=== PATIENT | male | born 1950 | race Caucasian/White ===

== ENCOUNTER 2018-08-27 14:46 | Inpatient (IN) ==
--- NOTE | 2018-08-27 16:26 | Diag Imaging Result Doc PS360 ---
CHEST-2 VIEWS - 08/27/2018 INDICATION: fever COMPARISON: 06/11/2018 FINDINGS: There is ill-defined infiltrate in the left lower lobe. Heart size is normal. Stable fibrotic opacities in the lung bases. No pneumothorax or pleural effusion. IMPRESSION: Left lower lobe bronchopneumonia. Electronically signed by Joey Arrington 08/27/2018 4:24 PM
[2018-08-27 16:55] LABS: BASO# 0.02 X1000 (0.0-0.2); BASO% 0.1 % (0.0-0.8); EOS# 0.02 X1000 (0.0-0.7); EOS% 0.1 % (0.0-10.0); HEMATOCRIT 47.7 % (42.0-52.0); HEMOGLOBIN 15.8 g/dL (14.0-18.0); IMM GRAN# 0.08 X1000 (0.0-0.04); IMM GRAN% 0.4 % (0.0-0.5); LYMPH# 0.45 X1000 (1.2-3.4); LYMPH% 2.3 % (20.5-51.1); MCH 28.8 PG (27-31); MCHC 33.1 g/dL (33-37); MCV 86.9 FL (81-99); MONO# 1.33 X1000 (0.11-0.59); MONO% 6.9 % (1.7-9.3); MPV 10.8 FL (7.4-10.4); NEUT# 17.45 X1000 (1.4-6.5); NEUT% 90.2 % (42.2-75.2); PLT 252 X1000 (130-400); RBC 5.49 XMIL (4.7-6.1); RDW 14.6 % (11.5-14.5); WBC 19.35 X1000 (4.8-10.8)
[2018-08-27 17:02] LABS: ALB/GLOB RATIO 1.5; ALBUMIN 4.2 g/dL (3.5-5.0); CALCIUM 8.9 mg/dL (8.8-10.2); CREATININE 2.3 mg/dL (0.7-1.2); POTASSIUM 3.8 mmol/L (3.5-5.1); TOTAL BILIRUBIN 5.19 mg/dL (0.20-1.00)
[2018-08-27] MEDS ORDERED: NS 1,000 ML IV ONE ×2 (17:40→18:30)
[2018-08-27] MEDS ORDERED: ROCEPHIN 1 GM in NS 50 ML IV ONE (17:41)
--- NOTE | 2018-08-27 17:42 | PROVIDER DOCUMENTATION ---
HPI-Fever - General Chief Complaint: Fever Stated Complaint: SYNCOPE Time Seen by Provider: 08/27/18 17:36 Source: patient, family Allergies/Adverse Reactions: Patient Allergies Allergy/AdvReac Type Severity Reaction Status Date / Time No Known Allergies Allergy Verified 08/27/18 17:52 Home Medications: Home Medication List Medication Instructions Recorded Confirmed Last Taken Type Atorvastatin Calcium [Lipitor] 40 mg PO QAM 10/03/15 08/27/18 03/12/18 04:00 History 40 Buspirone HCl [Buspar] 5 mg PO TID 10/03/15 08/27/18 03/12/18 04:00 History 5 Mirtazapine [Remeron] 45 mg PO QPM 10/03/15 08/27/18 03/11/18 19:00 History 45 Omeprazole [Prilosec] 20 mg PO DAILY 10/03/15 08/27/18 03/12/18 04:00 History 20 Cetirizine HCl 10 mg PO DAILY 02/12/18 08/27/18 03/11/18 19:00 History 10 Polyvinyl Alcohol Eye Drops 1 drop BOTH EYES 4XDAY 02/12/18 08/27/18 03/12/18 04 :00 History [Tearisol Oph Solution] 1 Quetiapine Fumarate [Seroquel] 300 mg PO QHS 02/12/18 08/27/18 03/11/18 19:00 History 300 Tamsulosin [Flomax] 0.4 mg PO DAILY 02/12/18 08/27/18 03/12/18 04:00 History 0.4 Amlodipine Besylate [Norvasc] 10 mg PO QAM #60 tab 02/22/18 08/27/18 03/12/18 04 :00 Rx 10 Hydrocodone/APAP 10 mg/325 mg 1 ea PO Q4H PRN PRN #30 tab 02/22/18 08/27/18 Unknown Rx [[place]-10] Thiamine [Vitamin B-1] 100 mg PO DAILY tablet 02/22/18 08/27/18 03/12/18 04:00 Rx 100 - History of Present Illness-Fever Nature of Presenting Problem: reports that weakness, nausea, chills, cough. few days ago he has sinus drainage. no other symptoms. was seen at urgent care and told pt has renal failure. Review of Systems - Adult - REVIEW OF SYSTEMS - ADULT Constitutional: reports: no symptoms reported Eyes: reports: no symptoms reported Ears, Nose, Mouth & Throat: reports: no symptoms reported Cardiovascular: reports: no symptoms reported Respiratory: reports: no symptoms reported Gastrointestinal: reports: no symptoms reported Genitourinary: reports: no symptoms reported Musculoskeletal: reports: no symptoms reported Integumentary: reports: no symptoms reported Neurological: reports: no symptoms reported Psychiatric: reports: no symptoms reported Endocrine: reports: no symptoms reported Hematologic/Lymphatic: reports: no symptoms reported Allergic/Immunologic: reports: no symptoms reported All Other Systems: Reviewed and Negative Past History - Adult - PAST MEDICAL HISTORY-ADULT Review of Records: reports: Old Records Reviewed, Nursing Assessment Review, Medications Reviewed, Social history reviewed & non-contributory. Major Childhood Illnesses: reports: denies history Cardiovascular: reports: HTN, hyperlipidemia Respiratory: reports: COPD Gastrointestinal: reports: GERD Obstetrical/Gynecological: reports: denies history Genitourinary: reports: denies history Musculoskeletal: reports: denies history Neurological: reports: CVA, dementia, Seizures/Epilepsy Psychiatric: reports: depression Endocrine/Immune: reports: denies history Other Conditions: reports: denies history - PRIOR SURGERIES/PROCEDURES Surgical/Procedure History: reports: reviewed, not pertinent, cholecystectomy - IMMUNIZATION STATUS Childhood Immunizations: See Nurse Assessment Flu Vaccine: See Nurse Assessment - FAMILY HISTORY Family History: reviewed, not pertinent - SOCIAL HISTORY Smoking: greater than 1 pack/day Provider spent 3-5 mins advising pt. on dangers of tobacco.: Discussed manners to quit use, and f/u contacts for add'l counseling. Substance Use: none/never Alcohol Use Frequency: never Living Situation: family Physical Exam-General - PHYSICAL EXAM-ADULT Initial Vital Signs Reviewed: Yes - CONSTITUTIONAL General Appearance: appears well, alert, no apparent distress - EYES Eyes: PERRL/EOMI, pink conjunctivae - HEAD, EARS, NOSE, MOUTH & THROAT HENMT: normocephalic/atraumatic, moist mucous membranes, normal ENT inspection, TMs normal, other (dry mucous membrane) - NECK Neck: non-tender, full range of motion - RESPIRATORY Respiratory: chest non-tender, decreased breath sounds, wheezing - CARDIOVASCULAR Cardiovascular: normal peripheral pulses, regular rate, rhythm, no edema - GASTROINTESTINAL (ABDOMEN) Abdominal Exam: normal bowel sounds, non tender, soft - MUSCULOSKELETAL Back Exam: normal inspection, no CVA tenderness Extremity: normal range of motion, non-tender, normal gait Peripheral Pulses: radial (R): 2+, radial (L): 2+ - SKIN Integumentary: normal color, normal turgor, warm/dry - NEUROLOGIC Neurologic: grossly normal, no motor/sensory deficits - PSYCHIATRIC Psych/Mental Status: normal mood/affect, normal thought content, normal thought process, oriented x 3 Progress - PLAN OF CARE/RESULTS Progress/Plan/Lab Results: Vital Signs - 8 hr 08/27/18 15:16 08/27/18 17:34 08/27/18 17:35 Temperature 101.3 F H Pulse Rate 136 H 104 H 113 H Respiratory Rate 18 18 35 H Blood Pressure 131/80 140/78 140/78 O2 Sat by Pulse Oximetry 92 L 95 96 08/27/18 17:40 08/27/18 17:50 08/27/18 18:00 Temperature 99.9 F H Pulse Rate 112 H 108 H 111 H Respiratory Rate 23 27 H Blood Pressure 140/78 O2 Sat by Pulse Oximetry 95 93 L 92 L 08/27/18 18:10 08/27/18 18:20 08/27/18 18:28 Temperature 100.2 F H Pulse Rate 110 H 103 H Respiratory Rate Blood Pressure O2 Sat by Pulse Oximetry 94 L 93 L 08/27/18 15:20 Influenza Screen - Final Nasopharyngeal Laboratory Results - last 24 hr 08/27/18 08/27/18 08/27/18 15:58 15:58 15:58 WBC 19.35 H RBC 5.49 Hgb 15.8 Hct 47.7 MCV 86.9 MCH 28.8 MCHC 33.1 RDW Std Deviation 14.6 H Plt Count 252 MPV 10.8 H Immature Gran % (Auto) 0.4 Neut % (Auto) 90.2 H Lymph % (Auto) 2.3 L [place] % (Auto) 6.9 Eos % (Auto) 0.1 Baso % (Auto) 0.1 Immature Gran # (Auto) 0.08 H Neut # (Auto) 17.45 H Lymph # (Auto) 0.45 L [place] # (Auto) 1.33 H Eos # (Auto) 0.02 Baso # (Auto) 0.02 PT INR PTT (Actin FS) Sodium 141 Potassium 3.8 Chloride 99 Carbon Dioxide 21 L Anion Gap 21 BUN 30 H Creatinine 2.3 H Estimated GFR/1.73 m2 29 BUN/Creatinine Ratio 13 Glucose 110 H Calculated Osmolality 288 Calcium 8.9 Total Bilirubin 5.19 H AST 257 H ALT 228 H Alkaline Phosphatase 305 H Creatine Kinase Troponin T Total Protein 7.0 Albumin 4.2 Globulin 2.8 Albumin/Globulin Ratio 1.5 Plasma Lactate 2.4 H Urine Source Urine Color Urine Turbidity Urine pH Ur Specific [place] Urine Protein Ur Glucose (Stick) Ur Ketones (Stick) Urine Blood Urine Nitrite Urine Bilirubin Urobilinogen Dipstick Urine Leukocytes Urine WBC (Auto) Urine RBC (Auto) U Epithel Cells (Auto) Urine Bacteria (Auto) 08/27/18 08/27/18 08/27/18 15:58 15:58 15:58 WBC RBC Hgb Hct MCV MCH MCHC RDW Std Deviation Plt Count MPV Immature Gran % (Auto) Neut % (Auto) Lymph % (Auto) [place] % (Auto) Eos % (Auto) Baso % (Auto) Immature Gran # (Auto) Neut # (Auto) Lymph # (Auto) [place] # (Auto) Eos # (Auto) Baso # (Auto) PT 13.9 INR 0.99 PTT (Actin FS) 32.5 Sodium Potassium Chloride Carbon Dioxide Anion Gap BUN Creatinine Estimated GFR/1.73 m2 BUN/Creatinine Ratio Glucose Calculated Osmolality Calcium Total Bilirubin AST ALT Alkaline Phosphatase Creatine Kinase 71 Troponin T < 0.010 Total Protein Albumin Globulin Albumin/Globulin Ratio Plasma Lactate Urine Source Urine Color Urine Turbidity Urine pH Ur Specific [place] Urine Protein Ur Glucose (Stick) Ur Ketones (Stick) Urine Blood Urine Nitrite Urine Bilirubin Urobilinogen Dipstick Urine Leukocytes Urine WBC (Auto) Urine RBC (Auto) U Epithel Cells (Auto) Urine Bacteria (Auto) 08/27/18 08/27/18 17:50 18:04 WBC RBC Hgb Hct MCV MCH MCHC RDW Std Deviation Plt Count MPV Immature Gran % (Auto) Neut % (Auto) Lymph % (Auto) [place] % (Auto) Eos % (Auto) Baso % (Auto) Immature Gran # (Auto) Neut # (Auto) Lymph # (Auto) [place] # (Auto) Eos # (Auto) Baso # (Auto) PT INR PTT (Actin FS) Sodium Potassium Chloride Carbon Dioxide Anion Gap BUN Creatinine Estimated GFR/1.73 m2 BUN/Creatinine Ratio Glucose Calculated Osmolality Calcium Total Bilirubin AST ALT Alkaline Phosphatase Creatine Kinase Troponin T Total Protein Albumin Globulin Albumin/Globulin Ratio Plasma Lactate 2.9 H Urine Source CLEAN CATCH Urine Color YELLOW Urine Turbidity CLEAR Urine pH 6.5 Ur Specific [place] 1.013 Urine Protein 300 A Ur Glucose (Stick) NEGATIVE Ur Ketones (Stick) NEGATIVE Urine Blood NEGATIVE Urine Nitrite NEGATIVE Urine Bilirubin MODERATE A Urobilinogen Dipstick 6 A Urine Leukocytes NEGATIVE Urine WBC (Auto) <10 Urine RBC (Auto) <10 U Epithel Cells (Auto) <10 Urine Bacteria (Auto) NEGATIVE Orders Category Date Time Status Cardiac Monitoring DIRECTED Care 08/27/18 17:22 Active IV Insertion ORDERED Care 08/27/18 17:22 Completed Notify MD of + Sepsis Screen NOW Care 08/27/18 17:22 Active Notify Physician As Ordered Care 08/27/18 17:22 Active CHEST-2 VIEWS [RAD] Stat Exams 08/27/18 15:23 Completed BLOOD CULTURE [BLDCUL] Stat Lab 08/27/18 16:00 Results CBC WITH ELECTRONIC DIFF [HEME] Stat Lab 08/27/18 15:58 Completed CK PROFILE [SP CHEM] Stat Lab 08/27/18 15:58 Completed COMPREHENSIVE METABOLIC PANEL [CHEM] Stat Lab 08/27/18 15:58 Completed INFLUENZA SCREEN A/B Stat Lab 08/27/18 15:20 Completed LACTATE, PLASMA [CHEM] Lab 08/27/18 17:50 Completed LACTATE, PLASMA [CHEM] Lab 08/27/18 20:30 Uncollected LACTATE, PLASMA [CHEM] Lab 08/27/18 23:30 Uncollected LACTATE, PLASMA [CHEM] Stat Lab 08/27/18 15:58 Completed PROTIME WITH INR [COAG] Stat Lab 08/27/18 15:58 Completed PTT [COAG] Stat Lab 08/27/18 15:58 Completed TROPONIN T Stat Lab 08/27/18 15:58 Completed URINALYSIS W/POSS RFLX CULT [URINALYSIS] Stat Lab 08/27/18 18:04 Completed 0.9% Sodium Chloride Inj [Ns] 1,000 ml Med 08/27/18 18:16 Discontinued .ROUTE As Directed 0.9% Sodium Chloride Inj [Ns] 1,000 ml Med 08/27/18 17:40 Active IV 999 mls/hr 0.9% Sodium Chloride Inj [Ns] 1,000 ml Med 08/27/18 18:30 Active IV 999 mls/hr 0.9% Sodium Chloride Inj [Ns] 500 ml Med 08/27/18 18:30 Discontinued IV 999 mls/hr Albuterol [Albuterol Neb] Med 08/27/18 18:03 Discontinued 2.5 mg INH NOW ONE CefTRIAXONE [Rocephin] 1 gm Med 08/27/18 17:41 Discontinued 0.9% Sodium Chloride Inj [Ns] 50 ml IV NOW Aerosol Treatments Routine Oth 08/27/18 18:03 Active Aerosol Treatments Stat Ot 08/27/18 18:03 Active Oxygen Device Stat Ot 08/27/18 17:22 Active Pneumonia (suspected) Stat Ot 08/27/18 15:22 Ordered [facility] [address] [place] [address] [address], [place] [address] Department of Imaging Patient: DAYNA VILLAFUERTE ADM Date: 08/27/18 MR#: [id number] : 1950 ADM Status: PRE ER Age/Sex: 68/M Room/Bed: Loc: ED Ordering Physician: Jeremiah Murray MD Family Physician: None,PCP Reason for Procedure: fever ___ Signed CHEST-2 VIEWS - 08/27/2018 INDICATION: fever COMPARISON: 06/11/2018 FINDINGS: There is ill-defined infiltrate in the left lower lobe. Heart size is normal. Stable fibrotic opacities in the lung bases. No pneumothorax or pleural effusion. IMPRESSION: Left lower lobe bronchopneumonia. Electronically signed by Joey Arrington 08/27/2018 4:24 PM 08/27/18 1102 Interpreting Physician: Joey Arrington MD Dictated Date/Time: 08/27/18 1627 cc: Jeremiah Murray MD; None,PCP Result Diagrams: 08/27/18 15:58 08/27/18 15:58 Departure - Departure Date of Disposition Decision: 08/27/18 Time of Disposition Decision: 18:08 DIAGNOSIS: Bronchopneumonia, Elevated transaminase level, Acute kidney failure, Tobacco use disorder Disposition: ADMITTED INPATIENT 09 Certified Medical Emergency: Emergent Condition: Stable Referrals and Follow-Ups: None,PCP [Primary Care Provider] - - Critical Care Note This patient required my direct & personal management of CC.: No Attestation - Physician/ CHAS Attestation Patient care was provided by Advanced Practice Provider:: No The physician spent face to face time with patient:: Yes Advanced Practice Provider documentation review:: Supervising physician onsite and consulted in the evaluation and care of this patient. The physician did have a face to face encounter with the patient.
[2018-08-27 18:02] LABS: INR 0.99; PROTIME 13.9 Seconds (11.0-16.0); PTT 32.5 Seconds (22.3-41.8)
[2018-08-27] MEDS ORDERED: ALBUTEROL NEB INH ONE (18:03)
[2018-08-27 18:06] LABS: URINE SOURCE CLEAN CATCH
[2018-08-27 18:09] LABS: BILIRUBIN URINE MODERATE (NEGATIVE); BLOOD URINE NEGATIVE (NEGATIVE); COLOR YELLOW; GLUCOSE URINE NEGATIVE (NEGATIVE); KETONE URINE NEGATIVE (NEGATIVE); LEUKOCYTES URINE NEGATIVE (NEGATIVE); NITRITE URINE NEGATIVE (NEGATIVE); PH URINE 6.5; PROTEIN URINE 300 mg/dL (NEGATIVE); SP GRAVITY URINE 1.013; TURBIDITY URINE CLEAR (CLEAR); UROBILINOGEN URINE 6 mg/dL (NORMAL)
[2018-08-27 18:10] LABS: UR EPITHELIAL CELLS <10 /HPF (<10); URINE BACTERIA NEGATIVE /HPF; URINE RBC <10 /HPF (<10); URINE WBC <10 /HPF (<10)
[2018-08-27] MEDS ORDERED: NS 2,000 ML ONE (18:16)
[2018-08-27] MEDS ORDERED: NS 500 ML IV ONE (18:30)
[2018-08-27] MEDS ORDERED: NORCO-10 PO PRN (19:41)
--- NOTE | 2018-08-27 20:57 | Diag Imaging Result Doc PS360 ---
CT THORAX/ABD/PELVIS W/O CON - 08/27/2018 INDICATION: elevated LFTs, renal failure, COMPARISON: 02/13/2018, 02/12/2018 FINDINGS: CHEST: There is moderate vascular disease of the aortic arch and coronary arteries. There is stable fatty metaplasia at the apex of the left ventricle compatible with an old infarction. No mass or adenopathy. Stable mild COPD changes. No infiltrates. There are moderate degenerative changes of the spine. No acute or suspicious bony lesion. Abdomen pelvis: There are cholecystectomy clips. There are surgical changes to the posterior lateral left kidney with removal of one of the soft tissue density masses or cysts. The other cyst at the medial lower pole remains stable. This measures 6.2 x 5 cm. No stones or obstruction. No bowel obstruction or inflammation. Urinary bladder, prostate, and rectum are normal. Bones are intact. IMPRESSION: Little change from prior. No acute process. This exam was performed using automated exposure control, adjustment of mA or kV according to patient size, and/or use of iterative reconstruction technique Electronically signed by Joey Arrington 08/27/2018 8:54 PM
[2018-08-27] MEDS ORDERED: SEROQUEL PO SCH (21:00)
[2018-08-27] MEDS ORDERED: DOXYCYCLINE 100 MG in NS 250 ML IV ONE (21:00)
[2018-08-27] MEDS: DUONEB (A & A) INH SCH (21:45)
[2018-08-27] MEDS: HEPARIN SUBQ SCH (22:20)
[2018-08-27] MEDS: TEARISOL OPH SOLUTION BOTH EYES SCH (22:20)
[2018-08-27] MEDS: REMERON PO SCH (22:20)
[2018-08-27] MEDS: NS 1,000 ML IV SCH (23:00)
[2018-08-27] MEDS ORDERED: OXY IR PO PRN (23:37)
[2018-08-28 02:09] LABS: UR CREAT RANDOM 128.5 mg/dL (14-26)
[2018-08-28 02:21] LABS: UR PROT RANDOM 557.4 mg/dL
--- NOTE | 2018-08-28 03:28 | HISTORY AND PHYSICAL ---
CHIEF COMPLAINT: Shortness of breath. HISTORY OF PRESENT ILLNESS: This is a 68-year-old male with a history of renal cancer, recently resected. Also, a fairly longstanding smoking history. He came in to the ER for issues related to shortness of breath and fevers. He was here in February for a similar issue. He reports no headache. He does report cough and shortness of breath. His temperatures here though have been, he came in with a temperature today of 101.3, that is what he was when he came in this afternoon. Initially, felt to have a bronchopneumonia, but his CT scan did not confirm pneumonia, but his chest x-ray showed a left lower lobe infiltrate. He has some leukocytosis of 19,000, and it looks like some degree of progressive renal failure as well, which he has had issues with that before. Urine was otherwise clear. He denies any abdominal complaints. No vomiting. He has had nausea, as well. He was totally in renal failure, and he was sent from Urgent Care. Now that being said, he is a bit jaundiced as well, but it is not clear he has pneumonia, but he does have elevated liver enzymes and fever, most consistent with an acute hepatitis-type syndrome. He was admitted for further management. The patient had a similar presentation in June, and that is when he had cancer found in his kidney, so unclear what his diagnosis is now. PAST MEDICAL HISTORY: 1. Likely, COPD. 2. Dyslipidemia. 3. Anxiety, depression. 4. BPH. 5. Renal cell carcinoma. 6. Hypertension. PAST SURGICAL HISTORY: Nephrectomy, otherwise negative. SOCIAL HISTORY: He does smoke about a pack a day. He has done that for probably 40 years. He denies any recent alcohol use. I think he said he quit 15 years ago. He denies any other major issues. ALLERGIES: No known drug allergies. FAMILY HISTORY: Reviewed and noncontributory. He is a musician, works with keyboards. REVIEW OF SYSTEMS: No other major issues there. No weight loss or appetite change. No chest pain. Shortness of breath as described. GI: No issues. He has not noted jaundice. Otherwise, negative times a 10-point review of systems. PHYSICAL EXAMINATION: VITAL SIGNS: Current blood pressure is 109/61, heart rate 92, respiratory rate of 15, temperature 97.5 degrees, but he was 101.3 when he came in. Saturations are 93% on 3 L. GENERAL: A well-developed male, in no acute distress. EYES: Pupils equal, round, reactive to light, but sclerae were icteric. NECK: Supple. CARDIOVASCULAR: Regular rate and rhythm. PULMONARY: He had some occasional wheezes, rhonchi, no rales. GASTROINTESTINAL: Soft, nontender, nondistended. Bowel sounds were positive. NEUROLOGIC: Nonfocal. No asterixis. MUSCULOSKELETAL: 4/5 in all 4 extremities. SKIN: No jaundice noted, but he did have a yellowish tinge to his frenulum. LABORATORY DATA: White count is 19, hemoglobin and hematocrit 15 and 47, platelets 252. Coagulation studies were normal. BUN and creatinine of 30 and 2.3, which about a year ago they were 33 and 1.9, so there has been a little bit of change, but not drastic. However, the T bilirubin is up to 5. AST and ALT are 257 and 228. Urine was otherwise clear. PROBLEM LIST: Imaging was negative. There was a question of pneumonia, but then the CT did not show any infiltrates. No evidence of metastatic disease. The liver was not really commented on at all in the CT scan, but it was a without contrast CT scan. ASSESSMENT AND PLAN: A 68-year-old male with chronic obstructive pulmonary disease, history of renal cell carcinoma, who presents with fever, possibly early pneumonia, bronchitis, although that may have been since ruled out, and elevated liver enzymes, which we do not have a great cause for, and an [id number] renal failure. 1. Putative pneumonia. He has been placed on empiric antibiotics. With the CT scan being negative, I would say that it is most likely not that, but we will continue antibiotics and kind of see how he does from a fever standpoint, and he is hypoxic, so there is some concern. We may need to consider reimaging with contrast if we can get his creatinine improved. 2. Elevated liver enzymes. Acute hepatitis potentially. We will screen for hepatitis, get a GI opinion. Again, abdominal ultrasound, check a Tylenol level. He is on a statin. He is on reportedly Brady, not sure if he is still taking that. We will follow. No clear recent alcohol history. We will check a GGT level. 3. Chronic obstructive pulmonary disease. We will continue breathing treatments and work on treating his hypoxia. 4. Disposition. If clinically improved, I think he may be here a couple days, trying to sort out multiple issues. This [facility]. No local physician. cc: Keron Pak MD
[2018-08-28] MEDS: DUONEB (A & A) INH SCH ×4 (03:59→21:10)
[2018-08-28 07:58] LABS: BASO# 0.02 X1000 (0.0-0.2); BASO% 0.1 % (0.0-0.8); EOS# 0.01 X1000 (0.0-0.7); HEMATOCRIT 41.1 % (42.0-52.0); HEMOGLOBIN 13.5 g/dL (14.0-18.0); IMM GRAN# 0.07 X1000 (0.0-0.04); IMM GRAN% 0.3 % (0.0-0.5); LYMPH# 0.94 X1000 (1.2-3.4); LYMPH% 4.5 % (20.5-51.1); MCHC 32.8 g/dL (33-37); MCV 88.2 FL (81-99); MONO# 1.62 X1000 (0.11-0.59); MONO% 7.8 % (1.7-9.3); MPV 10.5 FL (7.4-10.4); NEUT% 87.3 % (42.2-75.2); PLT 196 X1000 (130-400); RBC 4.66 XMIL (4.7-6.1); RDW 14.9 % (11.5-14.5); WBC 20.76 X1000 (4.8-10.8)
[2018-08-28 08:17] LABS: ALBUMIN 3.3 g/dL (3.5-5.0); CALCIUM 7.7 mg/dL (8.8-10.2); CREATININE 2.1 mg/dL (0.7-1.2); DIRECT BILIRUBIN 3.4 mg/dL (0.00-0.20); POTASSIUM 3.8 mmol/L (3.5-5.1); TOTAL BILIRUBIN 4.4 mg/dL (0.20-1.00); TOTAL PROTEIN 6.5 g/dL (6.3-8.3)
[2018-08-28] MEDS: HEPARIN SUBQ SCH ×2 (08:47→21:49)
[2018-08-28] MEDS: FLOMAX PO SCH (08:49)
[2018-08-28] MEDS: NORVASC PO SCH (08:49)
[2018-08-28] MEDS: ZYRTEC PO SCH (08:49)
[2018-08-28] MEDS: PRILOSEC PO SCH (08:49)
[2018-08-28] MEDS: VITAMIN B-1 PO SCH (08:50)
[2018-08-28] MEDS ORDERED: DOXYCYCLINE 100 MG in NS 250 ML IV SCH (09:00)
[2018-08-28] MEDS ORDERED: LIPITOR PO SCH (09:00)
[2018-08-28] MEDS ORDERED: BUSPAR PO SCH (09:00)
--- NOTE | 2018-08-28 09:54 | Diag Imaging Result Doc PS360 ---
EXAM: US ABDOMEN-COMPLETE 08/28/2018 HISTORY: abdominal pain TECHNIQUE: Abdominal ultrasound COMMENT: The liver is slightly hyperechoic. The aorta and inferior vena cava are normal in their visible. The pancreatic head is normal in appearance remainder is obscured. There is antegrade flow in the portal vein. There is no evidence of biliary dilatation the common bile duct measuring less than 7 mm in diameter. There is a centimeter-sized cyst anteriorly in the right kidney and a 2.4 cm cyst in the lower pole. There is no evidence of hydronephrosis on the right. There is a 5.5 cm parapelvic cyst in the lower portion of the left kidney. The collecting system is slightly distended. This was not the case on 02/20/2018. The gallbladder is surgically absent. The spleen is nonenlarged. IMPRESSION: Mild left hydronephrosis. Hepatic steatosis. Electronically signed by Juan Jose Pryor 08/28/2018 9:52 AM
[2018-08-28] MEDS: NS 1,000 ML IV SCH ×2 (10:46→17:44)
--- NOTE | 2018-08-28 12:11 | PROGRESS NOTE ---
DATE: 08/28/2018 SUBJECTIVE: This morning, Mr. Villegas referred to be doing fairly okay. Denies any acute complaints. He states his chills and fevers have significantly improved and he is not having any issues breathing today. He also denies any abdominal pain or any diarrhea and he denies any dysuric symptoms. OBJECTIVELY: Vital Signs: His blood pressure is 123/79, pulse is 88, respirations 18, temperature is 98.6. Patient is saturating 97% on nasal cannula 3 L. General: Mr. Villegas is a 68-year-old, gentleman. He was in bed. He was not in any cardiopulmonary distress. HEENT: Mucosa is pink and moist. Anicteric. Acyanotic. Neck: Supple. Chest: Air entry was bilaterally reduced. There are diffuse crackles posteriorly, but no wheezing. Cardiovascular: Regular rate and rhythm. No murmurs, no rubs, no gallops. GI: Abdomen is soft. Minimally distended, but nontender. Bowel sounds present. No hepatosplenomegaly. Extremities: No pedal edema. CLASSIFICATION ANALYST: Patient is awake, alert, and oriented. There are no focal neurological deficit. IMAGING STUDIES: A chest x-ray did show left lower lobe bronchopneumonia. A CT scan of the abdomen and pelvis showed little change from prior. There was really no acute process. There was no obstruction or any inflammation around the kidneys. However, an ultrasound of the abdomen shows mild left hydronephrosis and hepatic steatosis. So far, blood cultures showing gram-negative rods, 2/2. ASSESSMENT: 1. Sepsis on presentation. The source seems to be either coming from the lungs or from the tract. We are pending the cultures. Patient has been started on broad-spectrum antibiotics. 2. Left lower lobe bronchopneumonia on x-rays. The patient is currently on antibiotics. 3. Left mild hydronephrosis. This could be a potential source of the infection as well. Dr. Roca has been consulted. 4. Gram-negative thea bacteremia 2/2, so this is a true infection. Unsure if it is from the lungs or from the tract. The patient is currently on ceftriaxone and doxycycline. We will discontinue the doxycycline and continue with the ceftriaxone until we have the identification and sensitivity. 5. 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 The margins were negative for any carcinoma. Urology has been consulted. 6. Transaminitis, likely a combination of steatohepatitis with shock liver. 7. Acute on chronic hypoxemic respiratory failure. So, in general, Mr. Villegas seems to be fairly stable. Blood pressure is now better. He is currently on gram-negative thea coverage. Will be waiting on the blood culture, ID and sensitivity and tweak this accordingly. cc: Jun Mckinney MD
[2018-08-28] MEDS: TEARISOL OPH SOLUTION BOTH EYES SCH ×4 (12:43→21:49)
[2018-08-28 15:12] LABS: HEPATITIS PROFILE ACUTE SEE COMMENTS
[2018-08-28] MEDS: BUSPAR PO SCH (17:37)
[2018-08-28] MEDS: ROCEPHIN 1 GM in NS 50 ML IV SCH (17:41)
[2018-08-28] MEDS: SEROQUEL PO SCH (21:49)
[2018-08-28] MEDS: REMERON PO SCH (21:49)
[2018-08-29] MEDS: DUONEB (A & A) INH SCH ×4 (03:17→21:09)
[2018-08-29] MEDS: NS 1,000 ML IV SCH (05:50)
[2018-08-29 08:02] LABS: BASO# 0.02 X1000 (0.0-0.2); BASO% 0.1 % (0.0-0.8); EOS# 0.13 X1000 (0.0-0.7); HEMATOCRIT 40.3 % (42.0-52.0); HEMOGLOBIN 13.4 g/dL (14.0-18.0); IMM GRAN# 0.04 X1000 (0.0-0.04); IMM GRAN% 0.3 % (0.0-0.5); LYMPH# 1.04 X1000 (1.2-3.4); LYMPH% 7.7 % (20.5-51.1); MCH 29.4 PG (27-31); MCHC 33.3 g/dL (33-37); MCV 88.4 FL (81-99); MONO# 0.81 X1000 (0.11-0.59); MPV 10.8 FL (7.4-10.4); NEUT# 11.52 X1000 (1.4-6.5); NEUT% 84.9 % (42.2-75.2); PLT 184 X1000 (130-400); RBC 4.56 XMIL (4.7-6.1); WBC 13.56 X1000 (4.8-10.8)
[2018-08-29 08:15] LABS: IRON SATURATION 13 %; TIBC 254 ug/dL; TOTAL IRON 33 ug/dL (53-167); UNBOUND IRON 221 ug/dL (112-346)
[2018-08-29 08:37] LABS: ALBUMIN 3.4 g/dL (3.5-5.0); CALCIUM 8.2 mg/dL (8.8-10.2); CREATININE 1.8 mg/dL (0.7-1.2); POTASSIUM 3.8 mmol/L (3.5-5.1); TOTAL BILIRUBIN 1.08 mg/dL (0.20-1.00); TOTAL PROTEIN 6.7 g/dL (6.3-8.3)
[2018-08-29] MEDS: FLOMAX PO SCH (11:33)
[2018-08-29] MEDS: PRILOSEC PO SCH (11:34)
[2018-08-29] MEDS: VITAMIN B-1 PO SCH (11:34)
[2018-08-29] MEDS: NORVASC PO SCH (11:34)
[2018-08-29] MEDS: ZYRTEC PO SCH (11:34)
[2018-08-29] MEDS: BUSPAR PO SCH ×3 (11:34→18:05)
[2018-08-29] MEDS: HEPARIN SUBQ SCH ×2 (11:35→20:54)
[2018-08-29] MEDS: TEARISOL OPH SOLUTION BOTH EYES SCH ×4 (11:36→20:54)
[2018-08-29] MEDS ORDERED: NS 1,000 ML IV SCH (11:45)
--- NOTE | 2018-08-29 15:17 | CONSULTATION ---
DATE OF CONSULTATION: 08/29/2018 REASON FOR CONSULTATION: Elevated liver function tests. HISTORY OF PRESENT ILLNESS: This is a 68-year-old male with a history of renal cancer who had recent resection. He reports following with Dr. Roca. The patient came into the hospital with shortness of breath and fever. During evaluation, he was found to have elevated liver function tests. Hepatitis profile showed reactive hepatitis C antibody. On reviewing medical history with the patient, he does report a history of hepatitis C and reports being treated from the ID approximately 3 years ago. He does not remember the name of the medication that he took. He states he usually follows up with the ID in [place] every 3 months. He has denied any abdominal pain. No reported heartburn or reflux. No dysphagia. No constipation. No reported blood in the stool or black stools. PAST MEDICAL HISTORY: COPD, renal cell carcinoma with resection, following with Dr. Roca, dyslipidemia, anxiety/depression, BPH, hypertension. PAST SURGICAL HISTORY: Left partial nephrectomy related to renal cancer. ALLERGIES: No known drug allergies. HOME MEDICATIONS: Norvasc 10 mg daily, Lipitor 40 mg daily, BuSpar 5 mg 3 times a day, cetirizine 10 mg daily, [place] 10 every 4 hours as needed, Remeron 45 mg every night, Prilosec 20 mg daily, eye drops 4 times a day, Seroquel 300 mg every night, Flomax 0.4 mg daily, vitamin B 100 mg daily. SOCIAL HISTORY: Positive for tobacco use, approximately a pack a day. He denies alcohol use. He is . He does not have children. 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 REVIEW OF SYSTEMS: Per history of present illness. PHYSICAL EXAMINATION: Vital Signs: Temperature 98.1 degrees, pulse 83, respirations 18, blood pressure 133/74. General: The patient is awake and alert, in no acute distress. HEENT: Normocephalic atraumatic. Pupils equal, round, and reactive to light. Sclerae are nonicteric. Respiratory: Some congestion noted. Cardiovascular: Regular rate and rhythm. Abdomen: Soft. Positive bowel sounds. Nontender. Extremities: No lower extremity edema noted. Neurological: Cranial nerves 2-12 grossly intact. The patient is awake, alert, and oriented to person, place, and time. DIAGNOSTIC RESULTS: Laboratory: WBC 13.56, hemoglobin 13.4, hematocrit 40.3, MCV 88.4, platelet 184,000. Coagulation: Protime 13.9, INR 0.99, PTT 32.5. Chemistry: Sodium 144, potassium 3.8, chloride 107, CO2 21, BUN 36, creatinine 1.8, glucose 91, calcium 8.2. Iron 33, TIBC 254, percent saturation 13. Total bilirubin 1.08, AST 56, ALT 99, alkaline phosphatase 175. Serology: Hepatitis panel showed reactive hepatitis C antibody. ASSESSMENT: 1. Sepsis, on antibiotics. 2. Bronchial pneumonia, on antibiotics. 3. Hydronephrosis. The patient has recent renal cell cancer, following with Dr. Roca. 4. Elevated liver function tests, possibly related to infection. He does have a history of hepatitis C, status post treatment. PLAN: We will check HCV viral load, also get WAYLON. The patient's liver function tests have improved some today. Will continue to follow and further plans will be made as needed. Recommend patient follow up with us as an outpatient. I have discussed this case with Dr. Patino. Thank you for this consultation. Dictated by JENNA Jackson for Robbie Patino MD cc: JENNA Kuhn MD
--- NOTE | 2018-08-29 16:29 | PROGRESS NOTE ---
DATE: 08/29/2018 SUBJECTIVE: This morning Mr. Villegas refers to be doing fairly okay. Denies any complaints. OBJECTIVE: Vital Signs: Blood pressure 124/73, pulse 95, respirations 22, temperature is 97.9 degrees. Patient is saturating 95% on 2 L. General: Mr. Villegas is a 68-year- old gentleman. He was in bed in no distress. Mucosa is pink and moist. Anicteric. Acyanotic. Neck: Supple. Respiratory: Air entry is bilaterally reduced. There are diffuse crackles posteriorly, but there is also end expiratory wheezing. Cardiovascular: Regular rate and rhythm. No murmurs, no rubs, no gallops. Abdomen: Soft, dilated, but minimally distended but nontender. Bowel sounds present. No hepatosplenomegaly. Extremities: No pedal edema. Distal pulses present. SYSTEMS SECURITY CONSULTANT: Patient is awake, alert, and oriented. There are no focal neurological deficit. LABORATORY DATA: WBC is down to 13.56, hemoglobin is 12.4, and platelet count of 184,000. Chemistry is also reviewed. Creatinine is down to 1.8. AST is down to 56, ALT is down to 99. ASSESSMENT: 1. Sepsis on presentation improving. 2. Gram-negative thea bacteremia. The patient is on antibiotics. White cell count is coming down. 3. Left lower lobe pneumonia. 4. Left mild hydronephrosis. The patient is pending evaluation by Dr. Roca. 5. Status post left partial nephrectomy secondary to papular renal cell carcinoma type 2, margins of the surgical specimen was negative. 6. Transaminitis likely secondary to shock liver on background of hepatitis C liver injury. 7. Acute on chronic hypoxemic respiratory failure. Patient is on oxygen therapy. 8. Hepatitis C antibody reactive. Still pending the genotype studies. 9. Acute on chronic renal failure. Creatinine is on downward trend. We will continue with some baseline hydration. In general, I think Mr. Villegas is doing a lot better. We are going to reduce the rate of the IV fluids. The patient is pending evaluation by Urology. cc: Jun Mckinney MD MTDD
[2018-08-29] MEDS: ROCEPHIN 1 GM in NS 50 ML IV SCH (18:05)
[2018-08-29 18:09] LABS: HIV ANTIBODY SCREEN SEE COMMENTS
[2018-08-29] MEDS: REMERON PO SCH (20:54)
[2018-08-29] MEDS: SEROQUEL PO SCH (20:54)
[2018-08-30] MEDS: DUONEB (A & A) INH SCH ×2 (03:29→09:24)
[2018-08-30 07:54] LABS: BASO# 0.02 X1000 (0.0-0.2); BASO% 0.2 % (0.0-0.8); EOS# 0.22 X1000 (0.0-0.7); EOS% 2.7 % (0.0-10.0); HEMOGLOBIN 13.3 g/dL (14.0-18.0); IMM GRAN# 0.07 X1000 (0.0-0.04); IMM GRAN% 0.8 % (0.0-0.5); LYMPH# 1.37 X1000 (1.2-3.4); LYMPH% 16.6 % (20.5-51.1); MCH 29.3 PG (27-31); MCHC 33.3 g/dL (33-37); MCV 88.1 FL (81-99); MONO# 0.63 X1000 (0.11-0.59); MONO% 7.6 % (1.7-9.3); MPV 10.9 FL (7.4-10.4); NEUT# 5.94 X1000 (1.4-6.5); NEUT% 72.1 % (42.2-75.2); PLT 190 X1000 (130-400); RBC 4.54 XMIL (4.7-6.1); RDW 14.9 % (11.5-14.5); WBC 8.25 X1000 (4.8-10.8)
[2018-08-30 08:50] VITALS: BP 131/74
--- NOTE | 2018-08-30 09:22 | Diag Imaging Result Doc PS360 ---
EXAM: CHEST-2 VIEWS HISTORY: hypoxia TECHNIQUE: Chest two views COMPARISON: 08/27/2018 FINDINGS: The lungs are hyperexpanded with an increased AP diameter to the chest. No cardiomegaly. Infiltrates in the lower left lung are less pronounced. No significant change on the right. IMPRESSION: Overall mild interval improvement. Electronically signed by Brijesh Santiago 08/30/2018 9:20 AM
[2018-08-30 09:35] LABS: ALB/GLOB RATIO 0.8; ALBUMIN 3.2 g/dL (3.5-5.0); CALCIUM 8.8 mg/dL (8.8-10.2); CREATININE 1.9 mg/dL (0.7-1.2); POTASSIUM 3.7 mmol/L (3.5-5.1); TOTAL BILIRUBIN 0.75 mg/dL (0.20-1.00)
[2018-08-30] MEDS: FLOMAX PO SCH (10:33)
[2018-08-30] MEDS: PRILOSEC PO SCH (10:33)
[2018-08-30] MEDS: ZYRTEC PO SCH (10:33)
[2018-08-30] MEDS: BUSPAR PO SCH (10:33)
[2018-08-30] MEDS: VITAMIN B-1 PO SCH (10:33)
[2018-08-30] MEDS: NORVASC PO SCH (10:33)
[2018-08-30] MEDS: HEPARIN SUBQ SCH (10:34)
[2018-08-30] MEDS: TEARISOL OPH SOLUTION BOTH EYES SCH (10:35)
--- NOTE | 2018-08-30 12:50 | CONSULTATION ---
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 The patient was admitted to the hospital with shortness of breath on 08/27/2018. Part of the evaluation included a CT of the chest, abdomen, pelvis, which revealed stable left peripelvic cyst, and no evidence of mass recurrence. He also had abdominal ultrasound on 08/28/2018 which reported mild left hydronephrosis. The patient currently denies left flank pain, abdominal pain, nausea, vomiting or gross hematuria. He denies having had UTIs since the last visit to the hospital. PAST MEDICAL HISTORY: Renal cell carcinoma. Hypertension. Hyperlipidemia. COPD. Anxiety. BPH. PAST SURGICAL HISTORY: Left robotic partial nephrectomy. ALLERGIES: No known drug allergies. HOME MEDICATIONS: 1. Remeron. 2. BuSpar. 3. Lipitor. 4. Prilosec. 5. Cetirizine. 6. Flomax. 7. Seroquel. 8. Thiamine. 9. Norvasc. SOCIAL HISTORY: He continues to smoke. Former alcohol use. Denies illicit drugs. FAMILY HISTORY: Negative for malignancies. REVIEW OF SYSTEMS: Reviewed 12 systems and is negative with exception to the above stated shortness of breath as well as subjective fevers and chills. PHYSICAL EXAMINATION: Vital Signs: Temperature 97.9 degrees, P 95, and BP 124/73. General: No acute distress. Pleasant male. HEENT: Normocephalic, atraumatic. Cardiovascular: Regular rhythm. Pulmonary: Bilateral breath sounds although poor inspiratory effort. Abdomen: Protuberant. Nontender to palpation. Well-healed robotic trocar incision sites. Back: No CVA tenderness. Genitourinary: Bladder is nontender to palpation. Normal external male genitalia. Meatus is within without evidence of stenosis. Testes descended bilaterally. No masses. Rectal: Digital rectal examination is deferred at this time. Dermatologic: No skin rashes noted or lesions. Neurologic: Alert and oriented x3. Psychiatric: Appropriate mood and affect. PERTINENT LABORATORY DATA: White cell count is 14,000, hematocrit 40, and creatinine is 1.8. It was 2.3 two days prior. PERTINENT IMAGES: CT chest abdomen and pelvis per HPI. Abdominal ultrasound per HPI. ASSESSMENT AND PLAN: A 68-year-old male with history of left renal cell carcinoma who was admitted for non related issues. The CT scan showed no evidence of hydronephrosis. I personally reviewed the CT images, and there may be minimal dilation of the left renal pelvis but again no calyceal blunting and hence no concerning hydronephrosis. I also reviewed abdominal ultrasound images, and while there is mild dilation of the collecting system on those images, I would disagree there was a true hydronephrosis. It may be that the peripelvic cyst of the renal pelvis could have skewed the appearance of the pelvis. The patient has no symptoms such as flank pain, nausea or vomiting. I reassured the patient that he does not need further workup or intervention on his left kidney at this time. He has an appointment with me in a month or so to follow up on the renal cell carcinoma. He voiced an understanding. PLAN: 1. No urologic intervention needed at this time. 2. I will see him in outpatient basis as previously scheduled. 3. Thank you for consultation. Please call if there are any further questions. cc: Kenroy Roca MD
--- NOTE | 2018-08-30 18:05 | DISCHARGE SUMMARY ---
ADMISSION DATE: 08/27/2018 DISCHARGE DATE: 08/30/2018 DISPOSITION: Is home. FOLLOWUP: Will be 1. Dr. Roca. 2. Dr. Capellan. 3. Dr. Grissom. CONSULTATIONS: 1. GI was consulted, patient was seen by Dr. Patino. 2. Urology was consulted, patient was seen by Dr. Roca. IMAGING PROCEDURES: None. IMAGING STUDIES OF SIGNIFICANT: Chest x-ray was done which showed left lower lobe bronchopneumonia. A CT scan of the chest, abdomen and pelvis show little change from prior, no acute process. Ultrasound of the abdomen showed mild left hydronephrosis and hepatic steatosis. A repeat chest x- ray this morning shows overall interval improvement. Significant blood culture was positive for Klebsiella pneumoniae . DISCHARGE MEDICATIONS: 1. Mirtazapine 45 mg p.o. daily. 2. BuSpar 5 mg 3 times per day. 3. Atorvastatin 40 mg daily. 4. Omeprazole 20 mg daily. 5. Cetirizine 10 mg daily. 6. Tamsulosin 0.4 p.o. daily. 7. Quetiapine 300 mg p.o. at bedtime. 8. [place] 10 mg 1 tab daily. 9. Amlodipine 10 mg p.o. daily. 10. Levofloxacin 500 p.o. daily. ADMISSION DIAGNOSIS: 1. Pneumonia. 2. Elevated liver enzymes. 3. Chronic obstructive pulmonary disease . DIAGNOSIS AT THE TIME OF DISCHARGE: 1. Sepsis on presentation improved . 2. Klebsiella pneumoniae bacteremia. 3. Klebsiella pneumoniae left lower lobe pneumonia. 4. Left mild hydronephrosis patient was evaluated by Dr. Roca. 5. Status post left partial nephrectomy with pathology consistent with papillary renal cell carcinoma type 2, margins of the surgical specimen was negative. 6. Transaminitis secondary to shock liver on background of hepatitis C and steatohepatitis. 7. Acute on chronic hypoxemic respiratory failure, patient will continue on his home oxygen. 8. Hepatitis C antibody positive, we still pending the genotype and PCR studies . 9. Acute on chronic renal failure stage 3B stable. PRESENTING COMPLAINT: Shortness of breath. HISTORY PRESENT COMPLAINT: Mr. Villegas is a 68-year-old male who presented to the emergency department because of ongoing shortness of breath, patient also had a temperature of 101.3 degrees, he was evaluated, a chest x-ray did show bronchopneumonia, WBC was elevated to 19.00, patient was subsequently admitted for further medical care. HOSPITAL COURSE: The patient was admitted initially started on broad-spectrum antibiotics, cultures were done. Patient was adequately fluid resuscitated. Ultrasound of the abdomen showed some mild left hydronephrosis so urology was consulted patient was seen by Dr. Roca, however he said this was something that was expected after the surgery and nothing to be concerned about. Patient also has elevated liver enzymes. GI was consulted. Antibody for hepatitis C was positive and ultrasound also revealed hepatic steatosis. Patient has been advised to follow up with Dr. Patino. Throughout the hospital course Mr. Villegas continued to improve on daily basis, his WBC which went up to 20.76 has normalized this morning to 8.26, hemoglobin and platelets have remained stable and patient chemistry is also unremarkable except for creatinine that is 1.9 which seems to be chronic. Patient this morning feels a lot better , no more shortness of breath, no chest pain. Vitals: Blood pressure is 131/74, pulse is 91, respiration is 17, temperature 97.6 degrees, patient was saturating 98% on 3 L of nasal cannula which is what he normally uses. His chest exam reveals some remote crackles posteriorly but no wheezing, other physical exam is completely unremarkable. Mr. Villegas is fairly stable for discharge today, he is going to follow up with his primary care doctor, he will also follow up with subspecialties mentioned above. All the discharge instructions have been discussed with him and he voiced understanding. Patient also has been advised to come to emergency department if he develops any acute complications or call 911 if anything acutely happens. TIME SPENT: 37 minutes. cc: MD ROHAN Gale
[2018-09-01 18:29] LABS: HEPATITIS C GENOTYPE SEE COMMENTS
== END 2018-08-30 14:23 | disposition home or self-care (01) | DRG 871 ==
LOC: SUPCPDRO → ED 14:46 → SUATTDRO 22:08 → EDIPHOLD 22:08 → 3N 08-28 00:36
PROVIDERS: ATTEND Internal Medicine
CPT/HCPCS: 71020; 71046; 71250; 74176; 76700; 80048; 80053; 80074; 80076; 80307; 80324; 80329; 81001; 82003; 82550; 82570; 83540; 83550; 83605; 84156; 84300; 84484; 85025; 85610; 85730; 86038; 86039; 86701; 87040; 87077; 87186; 87275; 87276; 87389; 87522; 87804; 87902; 94640; 94761; 94799; 96365; 96366; 96368; 96372; 97161; 99285; A9270; G0480; G6039; J0696; J1644; J7030; J7050

== ENCOUNTER 2019-05-21 10:16 | Day surgery (SDC) ==
--- NOTE | 2019-05-21 11:00 | EKG Report ---
Test Performed on : 05/21/2019 10:45:28 AM Test Reason : AMS Blood Pressure : / mmHG Vent. Rate : 085 BPM Atrial Rate : 085 BPM P-R Int : 154 ms QRS Dur : 090 ms QT Int : 368 ms P-R-T Axes : 052 037 058 degrees QTc Int : 437 ms Normal sinus rhythm. Septal infarct (cited on or before 12-FEB-2018) Abnormal ECG When compared with ECG of 12-FEB-2018 10:47, No significant change was found Unconfirmed Result
[2019-05-21 11:11] LABS: ALLEN TEST YES; BE -8.4 mmoll (-3.0-3.0); BLOOD TYPE ARTERIAL; HCO3-(ACT) 18.2 mmoll (20.0-26.0); MODALITY CANNULA; O2(CT) 18.7 mL/dL (15.0-23.0); O2HB 92.9 % (95.0-99.0); PCO2(98.6) 31 mmHg (35-45); PO2(98.6) 71 mmHg (60-100); SAMPLE BLOOD; SAO2 96.4 % (95.0-100.0); THB 14.3 g/dL (11.5-17.4); pH(98.6) 7.33 (7.35-7.45)
[2019-05-21 11:17] LABS: BASO# 0.03 X1000 (0.0-0.2); BASO% 0.4 % (0.0-0.8); EOS% 1.2 % (0.0-10.0); HEMATOCRIT 43.2 % (42.0-52.0); IMM GRAN# 0.04 X1000 (0.0-0.04); IMM GRAN% 0.5 % (0.0-0.5); LYMPH# 1.28 X1000 (1.2-3.4); LYMPH% 14.9 % (20.5-51.1); MCH 28.6 PG (27-31); MCHC 32.4 g/dL (33-37); MCV 88.3 FL (81-99); MONO# 0.32 X1000 (0.11-0.59); MONO% 3.7 % (1.7-9.3); MPV 10.3 FL (7.4-10.4); NEUT% 79.3 % (42.2-75.2); PLT 287 X1000 (130-400); RBC 4.89 XMIL (4.7-6.1); RDW 14.6 % (11.5-14.5); WBC 8.57 X1000 (4.8-10.8)
[2019-05-21 11:26] LABS: INR 1.11; PROTIME 14.4 Seconds (11.0-16.0)
[2019-05-21 11:27] LABS: PTT 39.4 Seconds (22.3-41.8)
[2019-05-21 11:27] LABS: URINE SOURCE CLEAN CATCH
--- NOTE | 2019-05-21 11:28 | Diag Imaging Result Doc PS360 ---
CHEST-PORTABLE - 05/21/2019 INDICATION: ams, cough COMPARISON: 08/30/2018 FINDINGS: The lungs are clear. Heart size is normal. No pneumothorax or pleural effusion. IMPRESSION: Negative exam. Electronically signed by Joey Arrington 05/21/2019 11:26 AM
--- NOTE | 2019-05-21 11:31 | Diag Imaging Result Doc PS360 ---
EXAM: CT HEAD W/O CONTRAST INDICATION: AMS TECHNIQUE: This exam was performed using automated exposure control, adjustment of mA or kV according to patient size, and/or use of iterative reconstruction technique. COMPARISON: 02/14/2013 FINDINGS: There is no definite acute infarct given the limited sensitivity of CT versus MRI. There is no discrete intracranial mass, mass effect, or intracranial hemorrhage. The surrounding soft tissues and bony structures are essentially unremarkable. IMPRESSION: No evidence of acute intracranial pathology. Electronically signed by Hans Santa 05/21/2019 11:29 AM
[2019-05-21 11:43] LABS: BILIRUBIN URINE NEGATIVE (NEGATIVE); BLOOD URINE NEGATIVE (NEGATIVE); COLOR YELLOW; GLUCOSE URINE NEGATIVE (NEGATIVE); KETONE URINE NEGATIVE (NEGATIVE); LEUKOCYTES URINE NEGATIVE (NEGATIVE); NITRITE URINE NEGATIVE (NEGATIVE); PROTEIN URINE 200 mg/dL (NEGATIVE); SP GRAVITY URINE 1.013; TURBIDITY URINE CLEAR (CLEAR); UROBILINOGEN URINE NORMAL (NORMAL)
[2019-05-21 11:45] LABS: UR EPITHELIAL CELLS <10 /HPF (<10); URINE BACTERIA NEGATIVE /HPF; URINE RBC <10 /HPF (<10); URINE WBC <10 /HPF (<10)
[2019-05-21 11:48] LABS: UR AMPHETAMINES QUAL NONE DETECTED (NONE DETECT); UR BARBITUATES QUAL NONE DETECTED (NONE DETECT); UR BENZODIAZEPIN QUAL NONE DETECTED (NONE DETECT); UR CANNABINOIDS QUAL NONE DETECTED (NONE DETECT); UR COCAINE QUAL NONE DETECTED (NONE DETECT); UR METHADONE QUAL NONE DETECTED (NONE DETECT); UR OPIATES QUAL NONE DETECTED (NONE DETECT); UR OXYCODONE QUAL NONE DETECTED (NONE DETECT); UR PCP QUAL NONE DETECTED (NONE DETECT)
[2019-05-21 11:57] LABS: ALB/GLOB RATIO 1.2; ALBUMIN 4.4 g/dL (3.5-5.0); CALCIUM 9.2 mg/dL (8.8-10.2); CREATININE 2.2 mg/dL (0.7-1.2); TOTAL BILIRUBIN 0.38 mg/dL (0.20-1.00); TOTAL PROTEIN 8.1 g/dL (6.3-8.3)
[2019-05-21 11:58] LABS: POTASSIUM 5.8 mmol/L (3.5-5.1)
[2019-05-21] MEDS ORDERED: NS 1,000 ML IV ONE (12:50)
--- NOTE | 2019-05-21 12:56 | PROVIDER DOCUMENTATION ---
This chart was entered by Evy Austin Scribe, acting as scribe for Gerardo Horowitz MD. HPI-Neurological Disorder - General Chief Complaint: Altered Mental Status Stated Complaint: ams Time Seen by Provider: 05/21/19 10:39 Source: patient, RN/ (RN), EMS, other (girlfriend) Allergies/Adverse Reactions: Patient Allergies Allergy/AdvReac Type Severity Reaction Status Date / Time No Known Allergies Allergy Verified 08/27/18 17:52 Home Medications: Home Medication List Medication Instructions Recorded Confirmed Last Taken Type Atorvastatin Calcium [Lipitor] 40 mg PO QHS 10/03/15 05/21/19 03/12/18 04:00 History 40 Buspirone HCl [Buspar] 5 mg PO TID 10/03/15 05/21/19 03/12/18 04:00 History 5 Mirtazapine [Remeron] 45 mg PO QPM 10/03/15 05/21/19 03/11/18 19:00 History 45 Omeprazole [Prilosec] 20 mg PO DAILY 10/03/15 05/21/19 03/12/18 04:00 History 20 Cetirizine HCl 10 mg PO DAILY 02/12/18 05/21/19 03/11/18 19:00 History 10 Polyvinyl Alcohol Eye Drops 1 drop BOTH EYES 4XDAY 02/12/18 05/21/19 03/12/18 0 4:00 History [Tearisol Oph Solution] 1 Quetiapine Fumarate [Seroquel] 300 mg PO QHS 02/12/18 05/21/19 03/11/18 19:00 History 300 Tamsulosin [Flomax] 0.4 mg PO DAILY 02/12/18 05/21/19 03/12/18 04:00 History 0.4 Thiamine [Vitamin B-1] 100 mg PO DAILY tablet 02/22/18 05/21/19 03/12/18 04:00 Rx 100 Albuterol Sulfate [Proair 90 mcg INHALATION Q4H PRN 05/21/19 05/21/19 Unknown History Respiclick] Amlodipine Besylate [Norvasc] 0.5 tab PO BID 05/21/19 05/21/19 Unknown History Cyanocobalamin S.l. [Vitamin B-12] 2,500 microgm SUBLINGUAL DAILY 05/21/19 05/21/19 Unknown History Lisinopril 10 mg PO DAILY 05/21/19 05/21/19 Unknown History Tiotropium Br/Olodaterol HCl 2.5 mcg INHALATION DAILY 05/21/19 05/21/19 Unknown History [Stiolto Respimat Inhal [place]] - History of Present Illness-Neuro Nature of Presenting Problem: Patient is a 68 year old male who presents to the ED via EMS with altered mental status. RN states EMS reported patient has a decrease in responsiveness. Patient states taking his daily medications like normal. Girlfriend states she does not think he overtook his medications. Girlfriend reports patient having a stress test last week and is scheduled to have a heart cath this Saturday. Patient denies recent falls, fever and headache. Severity: reports: mild Onset/Duration: reports: this morning Timing: reports: still present Context: reports: other (AMS) Character of Altered Mental Status: reports: decreased responsiveness Any recent trauma/injury?: reports: none New weakness or altered sensation location:: reports: none Cognitive Baseline: alert, oriented x3 Gait Baseline: walks without assistance Associated Symptoms: reports: denies symptoms Similar Symptoms Previously?: No Recently seen or treated by another doctor?: Yes Review of Systems - Adult - REVIEW OF SYSTEMS - ADULT Constitutional: reports: fatique. denies: chills, fever Eyes: reports: no symptoms reported Ears, Nose, Mouth & Throat: reports: no symptoms reported Cardiovascular: reports: no symptoms reported Respiratory: reports: no symptoms reported Gastrointestinal: reports: no symptoms reported Genitourinary: reports: no symptoms reported Musculoskeletal: reports: no symptoms reported Integumentary: reports: no symptoms reported Neurological: reports: see HPI, other (AMS - decrease in responsiveness). denies: headache/migraines, tremors Psychiatric: reports: no symptoms reported Endocrine: reports: no symptoms reported Hematologic/Lymphatic: reports: no symptoms reported Allergic/Immunologic: reports: no symptoms reported All Other Systems: Reviewed and Negative Past History - Adult - PAST MEDICAL HISTORY-ADULT Review of Records: reports: Old Records Reviewed, Social history reviewed & non- contributory. Major Childhood Illnesses: reports: denies history Cardiovascular: reports: HTN, hyperlipidemia Respiratory: reports: asthma, COPD Gastrointestinal: reports: GERD Obstetrical/Gynecological: reports: denies history Genitourinary: reports: denies history Musculoskeletal: reports: denies history Neurological: reports: CVA, dementia, Seizures/Epilepsy Psychiatric: reports: depression Endocrine/Immune: reports: denies history Other Conditions: reports: denies history - PRIOR SURGERIES/PROCEDURES Surgical/Procedure History: reports: reviewed, not pertinent, cholecystectomy - IMMUNIZATION STATUS Childhood Immunizations: See Nurse Assessment Flu Vaccine: See Nurse Assessment - FAMILY HISTORY Family History: reviewed, not pertinent - SOCIAL HISTORY Smoking: cigarettes, greater than 1 pack/day Provider spent 3-5 mins advising pt. on dangers of tobacco.: Discussed manners to quit use, and f/u contacts for add'l counseling. Substance Use: denies Physical Exam- Neurological - Physical Exam-Neuro General Appearance: alert, no apparent distress, other (drowsy). negative: obtunded Eye Exam: bilateral eye: other (3 mm pupils. cataract lens to left. ) HENMT: normocephalic/atraumatic, other (dry mucous membranes). negative: angioedema Head Injury: no evidence of injury. negative: active bleeding, lacerations Respiratory: chest non-tender, lungs clear, normal breath sounds. negative: respiratory distress, crackles, rhonchi, wheezing, increased rate Cardiovascular: normal peripheral pulses, regular rate, rhythm. negative: tachycardia, systolic murmur, extra beats Abdominal Exam: normal bowel sounds, non tender, soft. negative: distended, guarding, rebound Extremity: normal inspection. negative: deformity, erythema, swelling cap inspector Exam: normal hearing, abnormal speech (slurred speech). negative: facial droop, facial weakness Motor/Sensory: no motor deficit, other (generalized weakness.). negative: sensory deficit Neurologic: motor weakness (generalized.), other (slurred speech). negative: aphasia, facial droop Integumentary: normal color, normal turgor, warm/dry. negative: diaphoresis, ecchymosis, jaundice Psych/Mental Status: oriented x 3, other (drowsy). negative: anxious, paranoid Progress - PLAN OF CARE/RESULTS Progress/Plan/Lab Results: Vital Signs - 8 hr 05/21/19 10:29 05/21/19 10:31 05/21/19 10:44 Temperature 98.6 F Pulse Rate 77 Respiratory Rate 18 Blood Pressure 110/75 110/75 O2 Sat by Pulse Oximetry 97 95 96 05/21/19 11:00 05/21/19 11:02 05/21/19 12:00 Temperature Pulse Rate 68 67 73 Respiratory Rate 15 16 13 Blood Pressure 116/78 O2 Sat by Pulse Oximetry 93 L 94 L 97 Laboratory Results - last 24 hr 05/21/19 05/21/19 05/21/19 10:40 10:42 10:42 WBC 8.57 RBC 4.89 Hgb 14.0 Hct 43.2 MCV 88.3 MCH 28.6 MCHC 32.4 L RDW Std Deviation 14.6 H Plt Count 287 MPV 10.3 Immature Gran % (Auto) 0.5 Neut % (Auto) 79.3 H Lymph % (Auto) 14.9 L Craven % (Auto) 3.7 Eos % (Auto) 1.2 Baso % (Auto) 0.4 Immature Gran # (Auto) 0.04 Neut # (Auto) 6.80 H Lymph # (Auto) 1.28 Craven # (Auto) 0.32 Eos # (Auto) 0.10 Baso # (Auto) 0.03 PT INR PTT (Actin FS) Specimen Type Sample Site pH pCO2 pO2 HCO3 Base Excess Oxyhemoglobin ABG O2 Sat (Calculated) ABG O2 Saturation ABG Carboxyhemoglobin ABG Methemoglobin Mendez Test A-a O2 Difference Total Hemoglobin Lactate Liter Flow Blood Gas Modality FiO2 % Sodium Potassium Chloride Carbon Dioxide Anion Gap BUN Creatinine Estimated GFR/1.73 m2 BUN/Creatinine Ratio Glucose POC Glucose 143 H Calculated Osmolality Calcium Total Bilirubin AST ALT Alkaline Phosphatase Creatine Kinase Troponin T Total Protein Albumin Globulin Albumin/Globulin Ratio Plasma Lactate Urine Source Urine Color Urine Turbidity Urine pH Ur Specific [place] Urine Protein Ur Glucose (Stick) Ur Ketones (Stick) Urine Blood Urine Nitrite Urine Bilirubin Urobilinogen Dipstick Urine Leukocytes Urine WBC (Auto) Urine RBC (Auto) U Epithel Cells (Auto) Urine Bacteria (Auto) Urine Opiates Screen Ur Oxycodone Screen Ur Methadone, Qual Ur Barbiturates Screen Ur Phencyclidine Scrn Ur Amphetamines Screen U Benzodiazepines Scrn Urine Cocaine Screen U Cannabinoids Screen Plasma/Serum Ethyl Alc 05/21/19 05/21/19 05/21/19 10:42 10:42 10:42 WBC RBC Hgb Hct MCV MCH MCHC RDW Std Deviation Plt Count MPV Immature Gran % (Auto) Neut % (Auto) Lymph % (Auto) Craven % (Auto) Eos % (Auto) Baso % (Auto) Immature Gran # (Auto) Neut # (Auto) Lymph # (Auto) Craven # (Auto) Eos # (Auto) Baso # (Auto) PT 14.4 INR 1.11 PTT (Actin FS) 39.4 Specimen Type Sample Site pH pCO2 pO2 HCO3 Base Excess Oxyhemoglobin ABG O2 Sat (Calculated) ABG O2 Saturation ABG Carboxyhemoglobin ABG Methemoglobin Mendez Test A-a O2 Difference Total Hemoglobin Lactate Liter Flow Blood Gas Modality FiO2 % Sodium 134 L Potassium 5.8 H Chloride 105 Carbon Dioxide 18 L Anion Gap 11 BUN 62 H Creatinine 2.2 H Estimated GFR/1.73 m2 30 BUN/Creatinine Ratio 28 Glucose 153 H POC Glucose Calculated Osmolality 289 Calcium 9.2 Total Bilirubin 0.38 AST 15 ALT 17 Alkaline Phosphatase 165 H Creatine Kinase 82 Troponin T < 0.010 Total Protein 8.1 Albumin 4.4 Globulin 3.7 Albumin/Globulin Ratio 1.2 Plasma Lactate Urine Source Urine Color Urine Turbidity Urine pH Ur Specific [place] Urine Protein Ur Glucose (Stick) Ur Ketones (Stick) Urine Blood Urine Nitrite Urine Bilirubin Urobilinogen Dipstick Urine Leukocytes Urine WBC (Auto) Urine RBC (Auto) U Epithel Cells (Auto) Urine Bacteria (Auto) Urine Opiates Screen Ur Oxycodone Screen Ur Methadone, Qual Ur Barbiturates Screen Ur Phencyclidine Scrn Ur Amphetamines Screen U Benzodiazepines Scrn Urine Cocaine Screen U Cannabinoids Screen Plasma/Serum Ethyl Alc 05/21/19 05/21/19 05/21/19 10:52 11:00 11:10 WBC RBC Hgb Hct MCV MCH MCHC RDW Std Deviation Plt Count MPV Immature Gran % (Auto) Neut % (Auto) Lymph % (Auto) Craven % (Auto) Eos % (Auto) Baso % (Auto) Immature Gran # (Auto) Neut # (Auto) Lymph # (Auto) Cra[place] # (Auto) Eos # (Auto) Baso # (Auto) PT INR PTT (Actin FS) Specimen Type ARTERIAL Sample Site R RADIAL pH 7.33 L pCO2 31 L pO2 71 HCO3 18.2 L Base Excess -8.4 L Oxyhemoglobin 92.9 L ABG O2 Sat (Calculated) 18.7 ABG O2 Saturation 96.4 ABG Carboxyhemoglobin 2.50 ABG Methemoglobin 1.0 Mendez Test YES A-a O2 Difference 90.0 Total Hemoglobin 14.3 Lactate 0.60 Liter Flow 2.0 Blood Gas Modality CANNULA FiO2 % 28.0 Sodium Potassium Chloride Carbon Dioxide Anion Gap BUN Creatinine Estimated GFR/1.73 m2 BUN/Creatinine Ratio Glucose POC Glucose Calculated Osmolality Calcium Total Bilirubin AST ALT Alkaline Phosphatase Creatine Kinase Troponin T Total Protein Albumin Globulin Albumin/Globulin Ratio Plasma Lactate 0.7 Urine Source CLEAN CATCH Urine Color YELLOW Urine Turbidity CLEAR Urine pH 6.0 Ur Specific [place] 1.013 Urine Protein 200 A Ur Glucose (Stick) NEGATIVE Ur Ketones (Stick) NEGATIVE Urine Blood NEGATIVE Urine Nitrite NEGATIVE Urine Bilirubin NEGATIVE Urobilinogen Dipstick NORMAL Urine Leukocytes NEGATIVE Urine WBC (Auto) <10 Urine RBC (Auto) <10 U Epithel Cells (Auto) <10 Urine Bacteria (Auto) NEGATIVE Urine Opiates Screen Ur Oxycodone Screen Ur Methadone, Qual Ur Barbiturates Screen Ur Phencyclidine Scrn Ur Amphetamines Screen U Benzodiazepines Scrn Urine Cocaine Screen U Cannabinoids Screen Plasma/Serum Ethyl Alc 05/21/19 11:10 WBC RBC Hgb Hct MCV MCH MCHC RDW Std Deviation Plt Count MPV Immature Gran % (Auto) Neut % (Auto) Lymph % (Auto) [place] % (Auto) Eos % (Auto) Baso % (Auto) Immature Gran # (Auto) Neut # (Auto) Lymph # (Auto) [place] # (Auto) Eos # (Auto) Baso # (Auto) PT INR PTT (Actin FS) Specimen Type Sample Site pH pCO2 pO2 HCO3 Base Excess Oxyhemoglobin ABG O2 Sat (Calculated) ABG O2 Saturation ABG Carboxyhemoglobin ABG Methemoglobin Mendez Test A-a O2 Difference Total Hemoglobin Lactate Liter Flow Blood Gas Modality FiO2 % Sodium Potassium Chloride Carbon Dioxide Anion Gap BUN Creatinine Estimated GFR/1.73 m2 BUN/Creatinine Ratio Glucose POC Glucose Calculated Osmolality Calcium Total Bilirubin AST ALT Alkaline Phosphatase Creatine Kinase Troponin T Total Protein Albumin Globulin Albumin/Globulin Ratio Plasma Lactate Urine Source Urine Color Urine Turbidity Urine pH Ur Specific [place] Urine Protein Ur Glucose (Stick) Ur Ketones (Stick) Urine Blood Urine Nitrite Urine Bilirubin Urobilinogen Dipstick Urine Leukocytes Urine WBC (Auto) Urine RBC (Auto) U Epithel Cells (Auto) Urine Bacteria (Auto) Urine Opiates Screen NONE DETECTED Ur Oxycodone Screen NONE DETECTED Ur Methadone, Qual NONE DETECTED Ur Barbiturates Screen NONE DETECTED Ur Phencyclidine Scrn NONE DETECTED Ur Amphetamines Screen NONE DETECTED U Benzodiazepines Scrn NONE DETECTED Urine Cocaine Screen NONE DETECTED U Cannabinoids Screen NONE DETECTED Plasma/Serum Ethyl Alc Orders Category Date Time Status Cardiac Monitoring DIRECTED Care 05/21/19 10:49 Active Finger Stick Blood Sugar (ED) DIRECTED Care 05/21/19 10:49 Active Oxygen Therapy- ED Nursing DIRECTED Care 05/21/19 10:49 Active Saline Loc NOW Care 05/21/19 10:49 Active CHEST-PORTABLE [RAD] Stat Exams 05/21/19 10:[address] HEAD W/O CONTRAST [CT] Stat Exams 05/21/19 10:49 Completed ABG [RESP] Routine Lab 05/21/19 11:00 Completed ALCOHOL BLOOD Stat Lab 05/21/19 10:42 Completed AMMONIA [CHEM] Stat Lab 05/21/19 12:49 Uncollected CBC WITH ELECTRONIC DIFF [HEME] Stat Lab 05/21/19 10:42 Completed CK PROFILE [SP CHEM] Stat Lab 05/21/19 10:42 Completed COMPREHENSIVE METABOLIC PANEL [CHEM] Stat Lab 05/21/19 10:42 Completed LACTATE, PLASMA [CHEM] Stat Lab 05/21/19 10:52 Completed PROTIME WITH INR [COAG] Stat Lab 05/21/19 10:42 Completed PTT [COAG] Stat Lab 05/21/19 10:42 Completed TROPONIN T Stat Lab 05/21/19 10:42 Completed URINALYSIS [URINALYSIS] Stat Lab 05/21/19 11:10 Completed URINE DRUG SCREEN Stat Lab 05/21/19 11:10 Completed 0.9% Sodium Chloride Inj [Ns] 1,000 ml Med 05/21/19 12:50 Active IV 999 mls/hr Altered Mental Status Stat Oth 05/21/19 10:48 Ordered EKG [EKG] Stat Ther 05/21/19 10:49 Draft Result Diagrams: 05/21/19 10:42 05/21/19 10:42 - REASSESSMENT Reassessment #1 Time Reassessed: 12:51 Status: unchanged (Given IVF bolus, patient still sleepy, but rousable. Likely overmedicated and dehydrated. Will ask hospitalist to admit) - EKG 1 Time of EKG reading by physician:: 10:45 EKG Read and Signed by:: Gerardo Horowitz EKG Interpretation (*Must complete 3 of following elements*): Abnormal Rate: 85 Rhythm: normal sinus rhythm Ransom: normal CA Interval: normal Comments: septal infarct, age undetermined - XRAY 1 XRAY Study: Chest Impression: See EMR Report (CHEST-PORTABLE - 05/21/2019 INDICATION: ams, cough COMPARISON: 08/30/2018 FINDINGS: The lungs are clear. Heart size is normal. No pneumothorax or pleural effusion. IMPRESSION: Negative exam. Electronically signed by Joey Arrington 05/21/2019 11:26 AM 05/21/19 1126 Interpreting Physician: Joey Arrington MD Dictated Date/Time: 05/21/19 1125 cc: Gerardo Horowitz MD; Enriqueta Rodrigues MD) - CT/MRI 1 CT Study: Head Impression: See EMR Report ( EXAM: CT HEAD W/O CONTRAST INDICATION: AMS TECHNIQUE: This exam was performed using automated exposure control, adjustment of mA or kV according to patient size, and/or use of iterative reconstruction technique. COMPARISON: 02/14/2013 FINDINGS: There is no definite acute infarct given the limited sensitivity of CT versus MRI. There is no discrete intracranial mass, mass effect, or intracranial hemorrhage. The surrounding soft tissues and bony structures are essentially unremarkable. IMPRESSION: No evidence of acute intracranial pathology. Electronically signed by Hans Santa 05/21/2019 11:29 AM 05/21/19 1129 Interpreting Physician: Hans Santa MD Dictated Date/Time: 05/21/19 1128 cc: Gerardo Horowitz MD; Enriqueta Caro MD) - CONSULTS/PCP/HOSPITALIST Notification #1 *Consult/PCP/Hospitalist*: JNENA Sim paged at [phone] Time Discussed: 12:56 (admit to [facility]) Consult Disposition: Admit Departure - Departure Date of Disposition Decision: 05/21/19 Time of Disposition Decision: 12:52 DIAGNOSIS: Dehydration determined by examination, Chronic renal insufficiency, stage III (moderate), Metabolic acidosis Altered mental status, unspecified Qualifiers: Altered mental status type: somnolence Qualified Code(s): R40.0 - Somnolence Disposition: ADMITTED INPATIENT 09 Certified Medical Emergency: Emergent Condition: Stable Referrals and Follow-Ups: Enriqueta Rodrigues MD [Primary Care Provider] - - Critical Care Note This patient required my direct & personal management of CC.: No Attestation - Physician/ CHAS Attestation Patient care was provided by Advanced Practice Provider:: No The physician spent face to face time with patient:: Yes Advanced Practice Provider documentation review:: Supervising physician onsite and consulted in the evaluation and care of this patient. The physician did have a face to face encounter with the patient. - NIH Stroke Scale NIH Type: Initial Evaluation Level of Consciousness: 1-Drowsy, but arousable with minimal stimulation LOC Questions (ask month and age): 0-Answers Both Correctly LOC Commands (ask to open & close eyes;make a fist, let go): 0-Obeys Both Correctly Best Gaze (horizontal eye movement): 0-Normal Visual (use finger movement, counting or visual threat): 0-No Visual Loss Facial Palsy (show teeth or raise eyebrows & close eyes tght: 0-Symmetrical Movement Motor Function-left arm: 0-Normal Motor Function-right arm: 0-Normal Motor Function-left le-Normal Motor Function-right le-Normal Limb Ataxia([id number], or heel to boo): 0-No Ataxia Sensory(pin prick to face,arms,trunk,legs-compare side/side): 0-No Ataxia Best Language(name item/read sentence.Ex-Down to Earth): 0-No Aphasia Dysarthria(Pt read words or say words Ex.Mama,Tip-Top,Thanks: 1-Mild-Mod Slurring Words Extinction and Inattention: 0-Normal NIH Total Score: 2 Modified Bruneau Score Criteria: 2-slight disability Stroke tPA Guidelines - Inclusion Criteria for IV tPA 18 years old or older: Yes Ischemic stroke with measurable deficit: No Onset <3 hours ago *OR* 3-4.5 hours ago: No This chart was documented by the indicated scribe, (Evy Austin Scribe) and accurately reflects the services I performed and decisions made by me, Gerardo Horowitz MD, as attested by the provider's signature.
[2019-05-21] MEDS ORDERED: ZOFRAN IV PRN (14:10)
[2019-05-21] MEDS: DUONEB (A & A) INH PRN ×2 (16:47→20:25)
[2019-05-21] MEDS: NS 1,000 ML IV SCH ×2 (17:35→23:52)
--- NOTE | 2019-05-21 17:53 | HISTORY AND PHYSICAL ---
PRIMARY CARE PROVIDER: [facility] [place]. SQL MANAGER: Dr. Mello at [facility]. HISTORY OF PRESENT ILLNESS: Mr. Villegas is a 68-year-old, male, who carries a past medical history of likely COPD, dyslipidemia, situational anxiety and depression, BPH, renal cell carcinoma on the right, status post nephrectomy. He has a known left mass on the left kidney which is being followed by Dr. Roca (they are just watching), hypertension who reports over the last several months he has been feeling fatigued. He was set up with Dr. Mello, underwent a stress test and supposed to have a heart catheterization on Saturday morning. He reports he had started the [employer] diet and lost 5 pounds in a week. He went from 182 down to 177. His girlfriend at the bedside reported that they last saw him at his normal mentation around 5 p.m. last night. She talked to him on the phone before bed at 8:00, spoke to him again this morning at 6 a.m. He appeared to be groggy. However, he reports he got up, took a shower, took his a.m. medications, and when she went to see him around 8 a.m., he was back in the bed and could not open his eyes. He does not think that he took too much medication. He does appear to be dehydrated. He did perk up with IV fluids in the ED. We will watch him on telemetry, continue with IV fluids, and hold any sedating medications. He is now awake, alert, and oriented x4. He follows commands, moves all extremities, but is still somewhat lethargic. He denies any recent fever, chills, chest pain, heart palpitations, syncope, dizziness, cough, nausea, vomiting, or diarrhea. PAST MEDICAL HISTORY: 1. Likely COPD. 2. Dyslipidemia. 3. Situational anxiety and depression. 4. BPH. 5. Right renal cell carcinoma, status post nephrectomy. 6. Known left kidney mass that they are watching. 7. Hypertension. PAST SURGICAL HISTORY: Right nephrectomy. SOCIAL HISTORY: He is about a pack-a-day smoker, has done so for more than 40 years. No alcohol use. He does have a supportive girlfriend at the bedside. ALLERGIES: No known drug allergies. HOME MEDICATIONS: Being reviewed. FAMILY HISTORY: Reviewed and noncontributory. REVIEW OF SYSTEMS: Completely negative, except for those mentioned in HPI. PHYSICAL EXAMINATION: VITAL SIGNS: Temperature is 98.6 degrees, heart rate 76, respirations 18, blood pressure 118/78, O2 is 95% on 2 L nasal cannula. GENERAL: Mr. Villegas is a lethargic-appearing, 68-year-old, male, who awakens easily. He answers all questions appropriately. He follows commands. He is not in any acute distress. HEENT: Atraumatic, normocephalic. PERRL. NECK: Supple. Trachea midline. CARDIOVASCULAR: S1, S2 appreciated. No murmurs, gallops, rubs noted. RESPIRATORY: Lung sounds clear bilaterally. GASTROINTESTINAL: Soft, nontender, nondistended. Positive bowel sounds x4 quadrants. EXTREMITIES: Lower extremities are negative for edema. SKIN: Appears to be warm, dry, and intact. NEUROLOGIC: Again, he is somewhat lethargic. He does follow commands. Answers all questions appropriately. There is no facial drooping. His upper and lower extremity strength are both 5/5. No weakness is noted. DIAGNOSTIC DATA: Head CT: No evidence of acute intracranial pathology. Chest x-ray was a negative exam. EKG: Normal sinus rhythm. LABORATORY DATA: Urinalysis is negative for bacteria, does have 200 protein. Chemistry: Sodium 134, potassium 5.8, BUN 62, creatinine 2.2, blood glucose is 153. Troponin less than 0.010. Plasma lactate was 0.7. White count 8, hemoglobin and hematocrit 14 and 43, platelet count is 287,000. Toxicology screen is negative. Alcohol level negative. ASSESSMENT AND PLAN: 1. Metabolic versus toxic encephalopathy. The patient does have some minor electrolyte imbalances with an elevated potassium, slightly low sodium. We will continue with IV fluids, recheck his potassium. We will hold any sedating medications. His toxicology screen was negative. No source of infection. Head CT was negative. Per girlfriend and patient, he feels like he has perked up after he has had some IV fluids. 2. Dehydration. We will continue with IV fluids. 3. Mild hyponatremia. Continue IV fluids. 4. Mild hyperkalemia with no T-wave abnormalities seen on his EKG. We will recheck another potassium at 3 p.m., will treat accordingly. 5. Acute on chronic kidney disease. He does appear to be a little bit above his normal baseline with his creatinine as well as BUN. Again, we will continue with IV hydration. We will recheck his kidney function in the a.m., consult Dr. Capellan if necessary, hold any nephrotoxic drugs. 6. Known renal cell carcinoma, status post nephrectomy on the right, and a known left kidney mass on the left. Being followed by Dr. Roca. 7. Hypertension. We are going to hold any medications for now. 8. Further recommendation to follow physician evaluation, laboratory and diagnostic data. Dictated by JENNA Brar for Jun Mckinney MD cc: Jun Mckinney MD
--- NOTE | 2019-05-21 17:54 | HISTORY AND PHYSICAL ---
SUBJECTIVE: I have seen and examined Mr. Villegas today. He refers to have presented to the emergency room because of extreme weakness and fatigue stating he did not really have any strength this morning to do anything. Per documentation from the ER, it appears that he was altered. He came in, and he was evaluated. His initial vitals revealed a blood pressure 180/75, pulse of 81 and respirations 18. OBJECTIVE: His physical exam is also remarkable for dry mucosa. LABORATORY STUDIES: I have reviewed his labs and remarkable is some abnormal electrolytes with a sodium of 134, potassium is 5.8, chloride is 105, bicarb 18, BUN 62, and creatinine is 2.5 which seems to be pretty much his baseline. IMAGING STUDIES: A chest x-ray shows a negative CT scan of the head was unremarkable. Drug screening was also done which is unremarkable. ASSESSMENT: 1. Generalized weakness with remarkable fatigue. We think it is related to severe dehydration and electrolyte abnormalities. We will continue with hydration over the course of the evening and the night. Re-evaluate his hydration status in the morning. 2. Electrolyte abnormality including hyponatremia and hypokalemia. We will continue the dressing. 3. Non-gap metabolic acidosis most likely related to the degree of the renal failure. 4. Acute on chronic kidney disease. We will continue with the gentle hydration. 5. History of hepatitis C antibody positive. 6. 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 7. So far today, we are going to continue with the IV fluids, and correct all his electro mineral abnormality. Re-evaluate Mr. Villegas in the morning and go from there. Mr. 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 8. Please refer to the details of the H and P which have been dictated in the chart by the SUPER[employer]. cc: Jun Mckinney MD
[2019-05-21] MEDS: TEARISOL OPH SOLUTION BOTH EYES SCH ×2 (18:30→20:49)
[2019-05-21] MEDS ORDERED: LIPITOR PO SCH (21:00)
[2019-05-22 05:36] LABS: BASO# 0.05 X1000 (0.0-0.2); BASO% 0.4 % (0.0-0.8); EOS% 3.2 % (0.0-10.0); HEMATOCRIT 40.2 % (42.0-52.0); IMM GRAN# 0.06 X1000 (0.0-0.04); IMM GRAN% 0.5 % (0.0-0.5); LYMPH# 2.41 X1000 (1.2-3.4); LYMPH% 19.3 % (20.5-51.1); MCH 29.1 PG (27-31); MCHC 32.3 g/dL (33-37); MCV 90.1 FL (81-99); MONO# 0.65 X1000 (0.11-0.59); MONO% 5.2 % (1.7-9.3); MPV 10.1 FL (7.4-10.4); NEUT# 8.93 X1000 (1.4-6.5); NEUT% 71.4 % (42.2-75.2); PLT 290 X1000 (130-400); RBC 4.46 XMIL (4.7-6.1); RDW 14.8 % (11.5-14.5)
[2019-05-22 06:00] LABS: ALB/GLOB RATIO 0.9; ALBUMIN 3.8 g/dL (3.5-5.0); CALCIUM 9.1 mg/dL (8.8-10.2); POTASSIUM 5.1 mmol/L (3.5-5.1); TOTAL BILIRUBIN 0.34 mg/dL (0.20-1.00); TOTAL PROTEIN 7.8 g/dL (6.3-8.3)
[2019-05-22] MEDS ORDERED: PRILOSEC PO SCH (07:00)
--- NOTE | 2019-05-22 07:01 | Diag Imaging Result Doc PS360 ---
EXAM: CHEST-PORTABLE 05/22/2019 HISTORY: follow up TECHNIQUE: AP portable at [id number] COMMENT: There is pleural thickening on the right. The heart size and pulmonary vascularity are within normal limits. The appearance of the chest has not changed significantly since 05/21/2019. IMPRESSION: Stable chest. Electronically signed by Juan Jose Pryor 05/22/2019 6:59 AM
[2019-05-22] MEDS: DUONEB (A & A) INH PRN ×2 (07:57→11:07)
[2019-05-22] MEDS: TEARISOL OPH SOLUTION BOTH EYES SCH ×2 (08:56→13:47)
[2019-05-22] MEDS ORDERED: NORVASC PO SCH (09:00)
[2019-05-22 11:56] VITALS: BP 127/67
[2019-05-22] MEDS ORDERED: FLU VACCINE IM ONE (12:42)
[2019-05-22] MEDS: NS 1,000 ML IV SCH (13:33)
--- NOTE | 2019-05-23 10:33 | DISCHARGE SUMMARY ---
ADMISSION DATE: 05/21/2019 DISCHARGE DATE: 05/22/2019 DISPOSITION: Home. FOLLOW-UP: 1. Dr. Enriqueta Rodrigues. 2. Poornima Shukla DPT. 3. Dr. Vidya Weldon. CONSULTATION DURING THIS ADMISSION: None. IMAGING STUDIES OF SIGNIFICANCE: 1. A chest x-ray was negative. 2. A head CT scan shows no evidence of acute intracranial disease. 3. Repeat chest x-ray unremarkable. ADMISSION DIAGNOSES: 1. Metabolic versus toxic encephalopathy. 2. Dehydration. 3. Hyponatremia. 4. Hyperkalemia. 5. Known renal cell carcinoma. 6. Hypertension. DIAGNOSES AT THE TIME OF DISCHARGE: 1. Generalized weakness with remarkable fatigue, most likely combination of electrolyte abnormalities and dehydration, improved. 2. Mild altered mental status on presentation, presumably toxic metabolic encephalopathy, improved. 3. Hyperkalemia, improved. 4. Non-gap metabolic acidosis. 5. Acute on chronic kidney disease. 6. Hepatitis C antibody positive. 7. History of left partial nephrectomy with pathology consistent with renal cell carcinoma type 2. DISCHARGE MEDICATIONS: 1. Remeron 45 mg p.o. q.p.m. 2. Buspirone 5 mg three times per day. 3. Atorvastatin 40 mg p.o. at bedtime. 4. Omeprazole 20 mg p.o. daily. 5. Cetirizine 10 mg p.o. daily. 6. Tamsulosin 0.4 p.o. daily. 7. Quetiapine 300 p.o. at bedtime. 8. Thiamine 100 mg p.o. daily. 9. Cyanocobalamin. 10. Amlodipine 5 mg b.i.d. 11. Carvedilol 12.5 mg b.i.d. 12. Bicarbonate 650 p.o. daily. MEDICATION THAT HAS BEEN DISCONTINUED: Lisinopril has been discontinued because of hyperkalemia, worsening renal function. PRESENTING COMPLAINT: Generalized weakness. HISTORY OF PRESENTING COMPLAINT: Mr. Villegas is a 68-year-old gentleman, who has multiple comorbidities including COPD, situational anxiety and depression, hypertension, some renal carcinoma, who came to the emergency department because of generalized weakness and some altered mentation. Upon presenting to the emergency department, he was evaluated. A CT scan of the head was unremarkable. He was, however, found to have abnormal electrolytes, including elevated potassium, low sodium and elevated BUN and creatinine. Mr. Villegas was theorized to be dehydrated, and the fact that he is on quite a few medications (psychotropics), we thought that was contributing to his altered mentation. He was admitted overnight. HOSPITAL COURSE: Mr. Villegas was admitted overnight, was adequately fluid resuscitated. This morning he feels a lot stronger. His laboratory data revealed that his sodium has normalized, is now 141. His potassium has also normalized to 5.1. His bicarbonate remains at 8. His BUN is down to 45 and his creatinine is down to 2.0. He feels stronger. He has eaten his breakfast and his lunch. We think he is now fairly stable to be discharged. He has been advised on adequate hydration. His blood pressure is slightly still elevated and, because we have discontinued his lisinopril, we started him on carvedilol. Mr. Villegas has also been started on sodium bicarbonate because of non gap metabolic acidosis, which we think is related to the degree of the renal failure. Mr. Villegas himself wanted to be discharged anyway because he has an appointment with Dr. Mello, the process checker in [place], Saturday. In any case, we think he is clinically stable for discharge. All the discharge instructions have been discussed with him. All the medication changes has also been discussed with him. TIME SPENT FOR DISCHARGE: 35 minutes. cc: Jun Mckinney MD
== END 2019-05-22 14:12 | disposition home or self-care (01) | DRG 640 ==
LOC: SUPCPDRO → ED 10:16 → OPS 13:08 → 1N 13:08 → DIRADM 13:08 → EDIPHOLD 13:59 → 1N 15:52 → OPS 05-22 14:12
PROVIDERS: ATTEND Internal Medicine